=== PATIENT | male | born 1990 | race Caucasian/White ===

== ENCOUNTER 2025-05-02 07:23 | Emergency (ER) | payer SELFPAY ==
[~2025-05-02] VITALS: Ht 170.2 cm; Wt 84.0 kg
[2025-05-02 07:25] VITALS: TEMP 99.5
[2025-05-02 08:22] VITALS: PULSE 88; RESP 20; O2SAT 99
[2025-05-02] MEDS: ALBUTEROL (0.083%) 2.5MG/3ML NEB HHN ONE (08:22)
[2025-05-02] MEDS: FLUTICASONE PROPIONATE 50MCG/SPRAY BOTTLE BOTHNSTRLS STA (08:56)
[2025-05-02] MEDS: IBUPROFEN 400MG TABLET PO ONE (08:56)
[2025-05-02] MEDS: ACETAMINOPHEN 325MG TABLET PO ONE (08:56)
[2025-05-02 10:12] LABS: INFLUENZA TYPE A Presumptive Negative (Pres. Neg.); INFLUENZA TYPE B Presumptive Negative (Pres. Neg.)
[2025-05-02 10:13] LABS: RESPIRATORY SYNCYTIAL VIRUS Not Detected (Not Detectd)
[2025-05-02] MEDS ORDERED: TOPUD PO (10:24)
[2025-05-02] MEDS ORDERED: ALBU90AE INH (10:24)
[2025-05-02 10:36] VITALS: BP 115/63; PULSE 69; RESP 12; O2SAT 95
== END 2025-05-02 10:37 | disposition home or self-care (01) ==
LOC: ER 07:23
DX: B34.9 Viral infection, unspecified (principal); Z20.822 Contact with and (suspected) exposure to COVID-19
CPT/HCPCS: 87420; 87804 ×2; 71045; 94640; 99284; 87426; Z7610 ×3; 94070